=== PATIENT | female | born 1955 | race Caucasian/White ===

== ENCOUNTER 2024-06-06 21:29 | Emergency (ER) | payer OTHER ==
[2024-06-06 21:50] VITALS: BP 160/90; PULSE 80; RESP 18; TEMP 98.4; BMI 28.1
== END 2024-06-07 00:20 | disposition home or self-care (01) ==
LOC: FER 21:29
DX: S06.0X0A Concussion without loss of consciousness, initial encounter (principal); M54.2 Cervicalgia; R11.0 Nausea; W21.05XA Struck by basketball, initial encounter; Y92.39 Other specified sports and athletic area as the place of occurrence of the external cause
CPT/HCPCS: 70450-TC; 72125-TC; 99284-25